=== PATIENT | male | born 1960 | race Two or more races ===

== ENCOUNTER 2022-10-17 09:20 | Emergency (ER) | payer OTHER ==
[2022-10-17 09:26] VITALS: BP 147/78; PULSE 68; RESP 20; TEMP 98.1; BMI 32.3
== END 2022-10-17 11:04 | disposition home or self-care (01) ==
LOC: JER 09:20 → JERFT 09:20
DX: M25.512 Pain in left shoulder (principal)
CPT/HCPCS: 73030-TC-LT-FY; 99283-25

== ENCOUNTER 2023-10-12 09:37 | Emergency (ER) | payer OTHER ==
[2023-10-12 09:51] VITALS: BP 148/94; PULSE 76; RESP 16; TEMP 98.7; BMI 32.3
[2023-10-12] MEDS ORDERED: DIPHTH,PERTUSS(ACELL),TET 0.5 ML DISP.SYRIN IM ONE (10:02)
[2023-10-12] MEDS ORDERED: LIDOCAINE HCL 2% (20ML MULTI-DOSE VIAL) ONE (10:02)
[2023-10-12] MEDS: DIPHTH,PERTUSS(ACELL),TET 0.5 ML DISP.SYRIN IM ONE (10:06)
[2023-10-12] MEDS: LIDOCAINE HCL 2% (50ML VIAL) INF ONE (10:10)
== END 2023-10-12 10:37 | disposition home or self-care (01) ==
LOC: FER 09:37
PROC: 0HQFXZZ Repair Right Hand Skin, External Approach (ICD-10-PCS; principal; 2023-10-12)
PROC: 3E0234Z Introduction of Serum, Toxoid and Vaccine into Muscle, Percutaneous Approach (ICD-10-PCS; 2023-10-12)
DX: S61.212A Laceration without foreign body of right middle finger without damage to nail, initial encounter (principal); W26.8XXA Contact with other sharp object(s), not elsewhere classified, initial encounter
CPT/HCPCS: 12001-25; 90471; 90715; 99283-25

== ENCOUNTER 2024-01-11 12:50 | Emergency (ER) | payer OTHER ==
[2024-01-11 12:58] VITALS: BP 147/86; PULSE 86; RESP 18; TEMP 98.6; BMI 32.3
== END 2024-01-11 13:52 | disposition home or self-care (01) ==
LOC: JERFT 12:50
DX: R21 Rash and other nonspecific skin eruption (principal); L30.9 Dermatitis, unspecified; L29.9 Pruritus, unspecified; B86 Scabies
CPT/HCPCS: 99283-25

== ENCOUNTER 2024-01-11 22:37 | Emergency (ER) | payer OTHER ==
[2024-01-11 22:42] VITALS: BP 159/83; PULSE 90; RESP 18; TEMP 98.7; BMI 33.3
[2024-01-12] MEDS ORDERED: ACETAMINOPHEN 500 MG TABLET (FP) ONE (00:48)
[2024-01-12] MEDS: ACETAMINOPHEN 500 MG TABLET (FP) PO ONE (00:49)
[2024-01-12] MEDS ORDERED: LIDOCAINE HCL 1%, 10 MG/ML (20ML VIAL) ONE (01:27)
[2024-01-12] MEDS: LIDOCAINE HCL 1%, 10 MG/ML (50 mL VIAL) PNB ONE (02:30)
== END 2024-01-12 05:07 | disposition home or self-care (01) ==
LOC: JER 22:37
PROC: 0HQFXZZ Repair Right Hand Skin, External Approach (ICD-10-PCS; principal; 2024-01-11)
DX: S62.356A Nondisplaced fracture of shaft of fifth metacarpal bone, right hand, initial encounter for closed fracture (principal); S61.212A Laceration without foreign body of right middle finger without damage to nail, initial encounter; W22.09XA Striking against other stationary object, initial encounter
CPT/HCPCS: 73130-TC-RT-FY; 99283-25

== ENCOUNTER 2024-09-16 06:22 | Day surgery (SDC) | payer OTHER ==
[2024-09-11 16:01] VITALS: BMI 34.7
[2024-09-16] MEDS ORDERED: LIDOCAINE HCL/PF 2% SDV 5ML VIAL ONE (07:22)
[2024-09-16] MEDS ORDERED: MIDAZOLAM HCL 2 MG/2 ML SINGLE DOSE VIAL ONE (07:22)
[2024-09-16] MEDS ORDERED: PROPOFOL 20 ML ONE (07:23)
[2024-09-16] MEDS ORDERED: BUPIVACAINE HCL/EPINEPHRINE/PF 30 ML VIAL IJ ONE (07:25)
[2024-09-16] MEDS ORDERED: DEXAMETHASONE SOD PHOSPHATE 4 MG/1 ML VIAL ONE (07:27)
[2024-09-16] MEDS ORDERED: BUPIVACAINE HCL/PF 0.5% (5MG/ML) 10 ML VIAL ONE (07:32)
[2024-09-16] MEDS ORDERED: ceFAZolin SODIUM 1 GM VIAL ONE (07:58)
[2024-09-16] MEDS ORDERED: ONDANSETRON 4 MG/2 ML VIAL IVPUSH PRN (08:13)
[2024-09-16] MEDS ORDERED: oxyCODONE HCL 5 MG TABLET PO PRN ×2 (08:13)
[2024-09-16] MEDS ORDERED: PROMETHAZINE HCL 25 MG/1 ML VIAL IVPB PRN (08:13)
[2024-09-16] MEDS ORDERED: LACTATED RINGERS SOLUTION 1,000 ML IV SCH (08:15)
[2024-09-16] MEDS ORDERED: KETOROLAC TROMETHAMINE 30 MG/1 ML VIAL ONE (08:32)
[2024-09-16] MEDS ORDERED: ROCURONIUM BROMIDE 50 MG/5 ML SYRINGE ONE (08:48)
[2024-09-16] MEDS ORDERED: ACETAMINOPHEN INJECTION 100 ML ONE (09:44)
[2024-09-16] MEDS: ACETAMINOPHEN 1000 MG/100 ML BAG IVPB ONE (09:45)
[2024-09-16 11:57] VITALS: RESP 18; TEMP 97.8
[2024-09-16 12:09] VITALS: BP 114/71; PULSE 73
== END 2024-09-16 11:45 | disposition home or self-care (01) ==
LOC: FASU 06:22
PROVIDERS: ATTEND Orthopaedic Surgery
PROC: 0RBK4ZZ Excision of Left Shoulder Joint, Percutaneous Endoscopic Approach (ICD-10-PCS; principal; 2024-09-16 08:17)
PROC: 0PBB4ZZ Excision of Left Clavicle, Percutaneous Endoscopic Approach (ICD-10-PCS; 2024-09-16 08:17)
PROC: 0LS40ZZ Reposition Left Upper Arm Tendon, Open Approach (ICD-10-PCS; 2024-09-16 08:17)
DX: S46.102A Unspecified injury of muscle, fascia and tendon of long head of biceps, left arm, initial encounter (principal); M75.22 Bicipital tendinitis, left shoulder; S43.432A Superior glenoid labrum lesion of left shoulder, initial encounter; M65.812 Other synovitis and tenosynovitis, left shoulder; M75.52 Bursitis of left shoulder; M75.02 Adhesive capsulitis of left shoulder; M19.012 Primary osteoarthritis, left shoulder; X58.XXXA Exposure to other specified factors, initial encounter; Y93.9 Activity, unspecified; Y92.9 Unspecified place or not applicable
CPT/HCPCS: 88304-TC; 94760; C1713; J0131

== ENCOUNTER 2025-02-02 09:39 | Emergency (ER) | payer OTHER ==
[2025-02-02 09:49] VITALS: BP 153/86; PULSE 75; RESP 18; TEMP 98.2; BMI 33.3
== END 2025-02-02 10:23 | disposition home or self-care (01) ==
LOC: JERFT 09:39
DX: H61.21 Impacted cerumen, right ear (principal); H92.01 Otalgia, right ear
CPT/HCPCS: 99283-25